=== PATIENT | female | born 1980 | race American Indian/Alaskan Native ===

== ENCOUNTER 2021-07-02 12:10 | Emergency (ER) | payer OTHER, MEDICAID, SELFPAY ==
[2021-07-02] VITALS (8 sets, daily range): BP systolic 105–135; BP diastolic 66–83; PULSE 82–92; RESP 16; TEMP 36.4; O2SAT 96–98; BMI 32.3
--- NOTE | 2021-07-02 12:55 | ED_ITS ---
HPI - Eye Problem <Gorge Peters PA-C - Last Filed: 07/02/21 13:51> General Chief complaint: Eye Problems Stated complaint: LEFT EYE IRRITATED AND PRESSURE BEHIND IT Time Seen by Provider: 07/02/21 12:24 History of Present Illness HPI Narrative: 41-year-old female with past medical history fibromyalgia, asthma presents to the ED with 3 days of left-sided eye pain, blurriness. Patient states that 3 days ago, she noticed upon awakening, redness in her left eye, p ain that feels like pressure in the same eye. Patient also endorses some left- sided ear pain. Patient denies having recent URI symptoms. Patient denies fever, chills, headaches, nausea, vomiting, abdominal pain, shortness of breath, chest pain, lightheadedness, dizziness, syncope. Patient denies a history of glaucoma or other eye problems. Patient is not a contact lens user. Patient uses glasses for reading. Related Data Previous Rx's Medication Instructions Recorded albuterol sulfate 90 mcg/actuation 0.09 mg IH Q4HP PRN #1 inh 01/06/17 aerosol inhaler (Proventil HFA) beclomethasone dipropionate 80 0 INH BID #3 inh 01/06/17 mcg/actuation aerosol inhaler (Qvar) fluticasone propionate 50 1 spray INTRANASAL QDAY #1 bot 01/06/17 mcg/actuation nasal spray,suspension (Flonase Allergy Relief) sumatriptan succinate 100 mg 100 mg PO PRN PRN #9 tab 05/06/17 tablet (Imitrex) fluoxetine 20 mg capsule 0 PO QDAY #60 cap 05/29/17 Allergies Allergy/AdvReac Type Severity Reaction Status Date / Time No Known Allergies Allergy Uncoded 12/17/17 12:59 Review of Systems <Gorge Peters PA-C - Last Filed: 07/02/21 13:51> Constitutional Constitutional: Denies chills, Denies fatigue, Denies fever(s), Denies frequent falls, Denies lethargy and Denies weakness Eyes Eyes: Reports blurry vision, Denies change in vision, Denies eye discharge, Denies irritation and Denies loss of vision Comments: Blurry vision in left eye, left eye pain ENT Ears, Nose, Mouth, and Throat: Denies change in voice, Denies dizziness, Denies neck pain, Denies sore throat and Denies throat swelling Comments: Left ear pain Cardiovascular Cardiovascular: Denies chest pain, Denies irregular heart rhythm, Denies lightheadedness, Denies palpitations, Denies dyspnea, Denies dyspnea on exertion and Denies orthopnea Respiratory Respiratory: Denies cough, Denies dyspnea, Denies dyspnea on exertion and Denies wheezing Gastrointestinal Gastrointestinal: Denies abdominal pain, Denies change in bowel habits, Denies diarrhea, Denies nausea and Denies vomiting Musculoskeletal Musculoskeletal: Denies neck pain and Denies numbness Integumentary/Breasts Skin/Breast: Denies pruritus, Denies erythema, Denies rash and Denies wounds Neurologic Neurologic: Denies behavioral changes, Denies confusion, Denies dizziness, Denies frequent falls, Denies loss of vision, Denies numbness and Denies weakness Psychiatric Psychiatric: Denies anxiety, Denies behavioral changes, Denies confusion, Denies depression, Denies homicidal ideation and Denies suicidal ideation Endocrine Endocrine: Denies fatigue, Denies flushing and Denies palpitations Hematologic/Lymphatic Hematologic/Lymphatic: Denies easy bruising Allergic/Immunologic Allergic/Immunologic: Denies urticaria, Denies throat swelling and Denies wheezing Patient History <Gorge Peters PA-C - Last Filed: 07/02/21 13:51> Surgical History History of third molar tooth extraction History of tonsillectomy Family History Father Age: 68 High cholesterol Grandfather Heart disease Hypertension High cholesterol Grandmother Hypertension Grandfather Cancer Grandmother Stroke Substance Use Type: marijuana Exam <Gorge Peters PA-C - Last Filed: 07/02/21 13:51> Initial Vital Signs Initial Vital Signs: Vital Signs Temperature 97.6 F 07/02/21 12:16 Pulse Rate 88 07/02/21 12:16 Respiratory Rate 16 07/02/21 12:16 Blood Pressure 135/83 07/02/21 12:16 Pulse Oximetry 97 07/02/21 12:16 Const General: cooperative HENMT Head: normocephalic and atraumatic Ears: external ears normal and other (Mild erythema of left tympanum, no bulging, no discharge) Nose: external nose normal and No nasal discharge Face and sinus: sinuses nontender, face symmetric, no sinus tenderness and No dry mucous membranes Mouth: oral mucosae normal and moist mucous membranes Teeth and gingiva: dentition normal Throat: tonsils normal and uvula midline Eyes Eyelids: eyelids normal Pupils: PERRL EOM: EOM intact bilaterally Other: Perrla, EOM intact bilaterally. Left conjunctival injection. Left eye appears swollen. Eyelids normal without erythema, swelling, discharge. Snellen vision is 20/20 in both eyes, 20/25 in the left eye, 20/20 in the right eye. No sinus tenderness to palpation Neck Neck: normal visual inspection, trachea midline, No lymphadenopathy, No midline deformity and No JVD Lymphatic: No lymphedema Chest Chest: normal inspection of the chest Resp Effort & Inspection: normal respiratory effort, able to speak in complete sentences, no respiratory distress and no use of accessory muscles Auscultation: clear to auscultation bilaterally, no rales, no rhonchi and no wheezes Cardio Rate: regular rate Rhythm: regular rhythm Heart Sounds: no click, no gallops, no murmurs and no rubs Pulses: normal peripheral pulses GI Inspection: non-distended Palpation: soft, no hepatosplenomegaly, No guarding, No pulsatile mass and No tender Auscultation: normal bowel sounds Back/Spine/Pelvis Back: No CVA tenderness Cervical Spine: cervical ROM normal and No pain with cervical ROM Thoracic/Lumbar Spine: thoracic and lumbar spine normal to inspection Skin General: no rashes or lesions noted, No jaundice and No petechiae Neuro General: patient alert, patient oriented x3, gait normal and no focal motor deficits Speech: speech normal Extrem General: full ROM, no clubbing, cyanosis or edema, no pedal edema and no calf tenderness Psych Appearance: well kempt Mental Status: mental status grossly normal Attitude: cooperative Thought Content: normal and suicidality Judgment: judgment good <Jason Naik DO - Last Filed: 07/09/21 07:23> Initial Vital Signs Initial Vital Signs: Vital Signs Temperature 97.6 F 07/02/21 12:16 Pulse Rate 88 07/02/21 12:16 Respiratory Rate 16 07/02/21 12:16 Blood Pressure 135/83 07/02/21 12:16 Pulse Oximetry 97 07/02/21 12:16 Course <Gorge Peters PA-C - Last Filed: 07/02/21 13:51> Course Course Narrative: Elevated IOP bilaterally. OS 30 mm Hg, OD 24 mm Hg. Patient has 3 signs (elevated IOP, conjunctival injection, corneal epithelial edema) 2 symptoms (ocular pain, blurry vision) glaucoma. Corneal abrasions visualized on fluorescein exam. Consulted Ophthalmology, Dr. Santosh Lantigua, who will see patient in his office today. Per Dr. Lantigua, he did not recommend any medications for the patient while in the ED. discussed with patient the seriuosness if the condition, patient verbalized understanding, will go to Dr. Lantigua' is office [place]. Orders Ordered: Discontinued Medications Fluorescein Sodium (Fluorescein 1 Mg Strip) 1 mg EYE-LEFT NOW ONE Stop: 07/02/21 13:01 Last Admin: 07/02/21 13:11 Dose: 1 mg Documented by: NICOLA Tetracaine HCl (Tetracaine 0.5% Ophth Drops 4 Ml) 2 drops EYE-BOTH INTRA-OP ONE Stop: 07/02/21 12:55 Last Admin: 07/02/21 13:11 Dose: 2 drops Documented by: NICOLA Vital Signs Vital signs: Vital Signs - 8 hr 07/02/21 12:16 07/02/21 12:21 07/02/21 12:22 Temperature 97.6 F Pulse Rate 88 88 Respiratory Rate 16 Blood Pressure 135/83 135/83 Pulse Oximetry 97 97 <Jason Naik DO - Last Filed: 07/09/21 07:23> Orders Ordered: Discontinued Medications Fluorescein Sodium (Fluorescein 1 Mg Strip) 1 mg EYE-LEFT NOW ONE Stop: 07/02/21 13:01 Last Admin: 07/02/21 13:11 Dose: 1 mg Documented by: NICOLA Tetracaine HCl (Tetracaine 0.5% Ophth Drops 4 Ml) 2 drops EYE-BOTH INTRA-OP ONE Stop: 07/02/21 12:55 Last Admin: 07/02/21 13:11 Dose: 2 drops Documented by: NICOLA Vital Signs Vital signs: Vital Signs - 8 hr 07/02/21 12:16 07/02/21 12:21 07/02/21 12:22 Temperature 97.6 F Pulse Rate 88 88 Respiratory Rate 16 Blood Pressure 135/83 135/83 Pulse Oximetry 97 97 [facility] - Eye Problem <Gorge Peters PA-C - Last Filed: 07/02/21 13:51> [facility] Narrative Medical decision making narrative: 41-year-old female with past medical history fibromyalgia, asthma presents to the ED with 3 days of left-sided eye pain, blurriness. Given conjunctival injection, swollen appearance of the eye, eye pain, concern for angle closure glaucoma. Left tympanum mildly erythematous, not bulging, not concerning for otitis media. Apply tetracaine drops to the eyes, check IOP. Will also check for corneal abrasions. Will reassess. Discharge Plan Departure Patient Disposition: Home Clinical Impression: Glaucoma Qualifiers: Glaucoma type: unspecified Laterality: bilateral Qualified Code(s): H40.9 - Unspecified glaucoma Instructions: Open-angle Glaucoma Activity Restrictions/Additional Instructions: You were seen in the ED today for left-sided eye pain, blurry vision. Your examination showed elevated intra-ocular pressures in both your eyes, which could likely be due to glaucoma. Immunohematologist Dr. Santosh Lantigua was consulted, he would like to see you in the office today. The clinic is [facility] located at [address] [place] [address]. Their phone number is [phone]. Glaucoma is a serious condition of PI, it is important for you to see Dr. Lantigua today. Prescriptions: No Action beclomethasone dipropionate [Qvar] 80 MCG/PUFF aerosol 0 INH BID Qty: 3 RF: 3 albuterol sulfate [Proventil HFA] 90 MCG/PUFF HFA aerosol inhaler 0.09 mg IH Q4HP PRNQty: 1 RF: 1 fluticasone propionate [Flonase Allergy Relief] 9.9 ML spray,suspension 1 spray Intranasal QDAY Qty: 1 RF: 1 sumatriptan succinate [Imitrex] 100 MG tablet 100 mg PO PRN PRNQty: 9 RF: 0 fluoxetine 20 MG capsule 0 PO QDAY Qty: 60 RF: 2 Referrals: Homero Treadwell MD [Primary Care Provider] - <Jason Naik DO - Last Filed: 07/09/21 07:23> Cosign ED Attending Cosignature Attestation: I was immediately available in the department for consultation. This documentation has been reviewed and I agree with assessment and plan. Supervised by Jason Naik, DO
[2021-07-02] MEDS: TETRACAINE 0.5% OPHTH DROPS 4 ML 2 DROPS EYE-BOTH (13:11)
[2021-07-02] MEDS: FLUORESCEIN 1 MG STRIP EYE-LEFT (13:11)
== END 2021-07-02 13:47 | disposition home or self-care (01) ==
PROVIDERS: Emergency Provider Student in an Organized Health Care Education/Training Program; PCP Family Medicine
DX: H40.9 Unspecified glaucoma (principal)
CPT/HCPCS: 99282

== ENCOUNTER → 2023-11-13 12:40 | Day surgery (SDC) | payer OTHER, MEDICAID, SELFPAY ==
[2023-11-11 14:57] VITALS: BMI 35.2
[2023-11-13 14:03] VITALS: BP 118/71; PULSE 83; RESP 16; TEMP 36.2; O2SAT 98; BMI 35.2
--- NOTE | 2023-11-13 14:36 | P.HPOB_ITS ---
History of Present Illness History of Present Illness Reason for admission: vaginal bleeding and pelvic pain Narrative: Mildred Tripathi is a 43 year old female 5 para 3 who presents for a D&C hysteroscopy with NovaSure endometrial ablation due to heavy and painful menstrual cycles. [facility] Medical History (Updated 11/11/23 @ 15:03 by Nory Lenz RN) Pancreatitis (2021) IBS (irritable bowel syndrome) (2022) Eczema (~1995) Alopecia (~2002) Acne (~1991) Asthma (~1989) Depression (~1997) Restless leg syndrome (~1999) Migraines (~2009) ADHD Hypermobility syndrome (~1979) Shoulder pain (~2002) Scoliosis (~1992) Fibromyalgia (~2021) Chronic back pain (~1999) Painful menstrual periods (~2021) Surgical History (Updated 08/27/23 @ 17:45 by Brielle Castañeda MD) H/O dilation and curettage Status post wisdom tooth extraction Anesthesia Status post breast reduction (~2008) History of shoulder surgery (~1997) History of tonsillectomy (~2001) History of third molar tooth extraction Family History (Updated 08/26/23 @ 13:26 by Neelam Edmondson) Father Age: 70 High cholesterol Grandfather Heart disease Hypertension High cholesterol Grandmother Hypertension Grandfather Cancer Heart disease Hypertension Hyperlipidemia Grandmother Stroke Diabetes mellitus Hypertension Social History household members: children Smoking Status: Former smoker alcohol intake: former Meds Home Medications and Allergies Home Medications Medication Instructions Recorded Confirmed Type oxycodone 5 mg tablet 5 mg PO Q4H PRN pain #10 tabs 11/13/23 Rx Allergies Allergy/AdvReac Type Severity Reaction Status Date / Time No Known Allergies Allergy Uncoded 11/13/23 13:54 Exam Vital Signs (past 8 hours): - 11/13/23 14:03 Temperature 97.2 F L Pulse Rate 83 Respiratory Rate 16 Blood Pressure 118/71 Pulse Oximetry 98 Oxygen Delivery Method Room Air Oxygen Delivery Method Room Air Narrative Exam Narrative: HEENT: No thyromegaly, no anterior cervical or supraclavicular lymphadenopathy. Lungs:Clear to auscultation bilaterally, no wheezes. Cardiovascular: Regular rate and rhythm, no murmurs, rubs, or gallops. Abdomen: No scars. No hepatosplenomegaly. No masses palpable. External genitalia: Normal Vagina: Normal Cervix: Normal Bimanual exam: 8 Week size anteverted uterus. Mobile. Extremities: No edema Assessment & Plan Assessment & Plan narrative: Assessment: 43-year-old 5 para 3 with heavy and painful menstrual cycles Plan: D&C hysteroscopy with NovaSure endometrial ablation The risks, benefits, and alternatives to the procedure were explained to the patient. The risks including bleeding, infection, and uterine perforation. She understands these risks and agrees to proceed. A full par Q was held and consent form was signed. Time Spent With Patient Time with patient: less than 30 minutes
[2023-11-13] MEDS: LACTATED RINGERS 1,000 ML 21 ML IV (14:38)
--- NOTE | 2023-11-13 14:38 | PM.PREOP ---
Pre-operative Note Interval Note History & Physical reviewed/Exam performed by Physician: Yes Changes to H&P: No H&P completed within 30 days and has changed as indicated here:: 11/13/23
--- NOTE | 2023-11-13 16:07 | SUR.PREOP ---
Notified patient that due to a complication with a previous surgery, patient could either wait for additional hours to have surgery or reschedule. Patient choosing to reschedule and very understanding. Home with family in stable condition. IV removed with catheter intact. Apologized for the inconvenience.
== END ==
PROVIDERS: Referring Provider Obstetrics & Gynecology; Visit Provider Obstetrics & Gynecology
DX: Z53.09 Procedure and treatment not carried out because of other contraindication (principal)

== ENCOUNTER 2024-01-15 11:18 | Day surgery (SDC) | payer OTHER, MEDICAID, SELFPAY ==
[2023-11-18 10:48] VITALS: BMI 35.2
--- NOTE | 2024-01-15 | PATH_ITS ---
[facility] Accession Number: [id number] No. of containers..01 Tissue . 01 Material submitted: . endometrium - ENDOMETRIAL CURETTINGS . 01 Diagnosis: ENDOMETRIUM, CURETTAGE: Polypoid fragments of late secretory phase benign endometrium with evidence of shedding/breakdown. MRV 01/21/2024 1437 Local . 01 Electronically signed: . Padmini Angelo MD, Pathologist NPI- [id number] . 01 Gross description: . Received in formalin with two patient identifiers and endometrial curettings, specimen consists of a 2.5 x 1.5 x 0.6 cm aggregate of clotted blood and mucus, which is filtered and entirely submitted in cassette A1. ([id number]) /MRV 01/16/2024 1736 Local . 01 Pathologist provided ICD-10: N93.9 . 01 CPT . 190928 Specimen Comment: A courtesy copy of this report has been sent to [phone] Performed at: 01 [facility] [address] [place] [address], [place], [place] [id number] MD Alan Rock MD Phone: [phone]
[2024-01-15] MEDS: SCOPOLAMINE 1 PATCH TOP (11:43)
[2024-01-15] MEDS: LACTATED RINGERS 1,000 ML 21 ML IV (11:43)
[2024-01-15 11:59] VITALS: BP 123/82; PULSE 84; RESP 18; TEMP 37.2; O2SAT 99; BMI 35.2
--- NOTE | 2024-01-15 12:59 | PM.GYNHP.1 ---
History of Present Illness History of Present Illness Reason for admission: vaginal bleeding and pelvic pain Narrative: Mildred Tripathi is a 43 year old female 5 para 3 who presents for a diagnostic laparoscopy, D&C hysteroscopy with NovaSure endometrial ablation. These procedures are being done due to menorrhagia and pelvic pain, unable to see the left ovary on ultrasound [facility] Medical History (Updated 11/11/23 @ 15:03 by Nory Lenz RN) Pancreatitis (2021) IBS (irritable bowel syndrome) (2022) Eczema (~1995) Alopecia (~2002) Acne (~1991) Asthma (~1989) Depression (~1997) Restless leg syndrome (~1999) Migraines (~2009) ADHD Hypermobility syndrome (~1979) Shoulder pain (~2002) Scoliosis (~1992) Fibromyalgia (~2021) Chronic back pain (~1999) Painful menstrual periods (~2021) Surgical History (Updated 08/27/23 @ 17:45 by Brielle Castañeda MD) H/O dilation and curettage Status post wisdom tooth extraction Anesthesia Status post breast reduction (~2008) History of shoulder surgery (~1997) History of tonsillectomy (~2001) History of third molar tooth extraction Family History (Updated 08/26/23 @ 13:26 by Neelam Edmondson) Father Age: 71 High cholesterol Grandfather Heart disease Hypertension High cholesterol Grandmother Hypertension Grandfather Cancer Heart disease Hypertension Hyperlipidemia Grandmother Stroke Diabetes mellitus Hypertension Social History household members: children Smoking Status: Former smoker alcohol intake: former Meds Home Medications and Allergies Home Medications Medication Instructions Recorded Confirmed Type alprazolam 0.25 mg tablet 0.25 mg PO DAILY PRN anxiety 01/15/24 01/15/24 History topiramate 50 mg tablet 50 mg PO BID 01/15/24 01/15/24 History Allergies Allergy/AdvReac Type Severity Reaction Status Date / Time No Known Drug Allergies Allergy Verified 01/15/24 11:55 Exam Vital Signs (past 8 hours): - 01/15/24 11:59 Temperature 99 F Pulse Rate 84 Respiratory Rate 18 Blood Pressure 123/82 Pulse Oximetry 99 Oxygen Delivery Method Room Air Oxygen Delivery Method Room Air Narrative Exam Narrative: HEENT: No thyromegaly, no anterior cervical or supraclavicular lymphadenopathy. Lungs:Clear to auscultation bilaterally, no wheezes. Cardiovascular: Regular rate and rhythm, no murmurs, rubs, or gallops. Abdomen: No scars. No hepatosplenomegaly. No masses palpable. External genitalia: Normal Vagina: Normal Cervix: Normal Bimanual exam: 8 Week size uterus. Mobile. Extremities: No edema Assessment & Plan Assessment & Plan narrative: Assessment: 43-year-old 5 para 3 left lower quadrant pain, unable to see the left ovary on ultrasound, and menorrhagia Plan: Diagnostic laparoscopy, D and C hysteroscopy and NovaSure endometrial ablation The risks, benefits, and alternatives to the procedure were explained to the patient. The risks including bleeding, infection, injury to the bowel, bladder, ureters, or uterine perforation. She understands these risks and agrees to proceed. A full par Q was held and consent form was signed. Time Spent With Patient Time with patient: less than 30 minutes
[2024-01-15] MEDS: ACETAMINOPHEN IV 1,000 MG/100 ML VIAL 400 MG IV (13:35)
[2024-01-15 14:18] VITALS: BP 125/82; PULSE 80; RESP 16; TEMP 37.1; O2SAT 97
[2024-01-15 14:23] VITALS: BP 125/85; PULSE 99; RESP 16; O2SAT 100
--- NOTE | 2024-01-15 14:23 | P.OP_ITS ---
Operative Date/Time/Diagnoses Date of procedure: 01/15/24 Time of procedure: 14:23 Pre-op diagnosis: Left lower quadrant pain Left ovary not seen on ultrasound Menorrhagia Post-op diagnosis: same Procedure & Clinicians Procedure: Procedures Operation Date: 01/15/24 12:45 Actual Procedure Side Surgeon micheline JOSÉ LAPAROSCOPY, D&C Hysteroscopy w/ Novasure Ablation, ENDOMETRIAL CURRETTINGS Brielle Castañeda MD Indications: 43-year-old with left lower quadrant pain and menorrhagia. Left ovary not visu alized on ultrasound. Surgeon: Brielle Castañeda Anesthesia Type: General and Local Operative Notes Findings: 7 week size uterus Normal tubes and ovaries Normal liver and gallbladder Normal appendix There was a small polyp near the left fallopian tube ostia Specimen(s): endometrial curettings Estimated blood loss (mL): 5 Blood products transfused: none Procedure in detail: After informed consent was obtained, the patient was taken to the operating room where she was placed in the dorsal supine position. After adequate general endotracheal anesthesia was achieved, she was placed in the dorsal lithotomy position, and prepped and draped in the usual sterile fashion. A time-out was performed. A bivalve speculum was placed into the vagina and the anterior lip of the cervix was grasped with a single-tooth tenaculum. The cervical os was sequentially dilated until the Zumi uterine manipulator could pass easily into the endometrial cavity. The single-tooth tenaculum was removed from the anterior lip of the cervix. The bivalve speculum was removed from the vagina. Attention was then turned to the abdomen where 6 cc of 0.5% Marcaine with epine phrine were injected in the umbilical fold. A 5 mm incision was made. The Veress needle was placed into the peritoneal cavity, and its placement confirmed by aspiration and drop test. The abdominal cavity was insufflated with 3.5 L of CO2. The Veress needle was removed, and a 5 mm trocar was placed without difficulty. Inspection of the pelvis and abdomen revealed the findings noted above. The instruments were removed from the uterus. The CO2 was allowed to escape. The incision was closed with 4-0 Monocryl in a subcuticular fashion. Steri-Strips and Allevyn dressings were placed. Attention was then turned to the vagina where the Zumi uterine manipulator was removed from the uterus. A bivalve speculum was placed into the vagina and the anterior lip of the cervix was grasped with a single-tooth tenaculum. The cervical os was dilated to the #8 Hegar dilator. The hysteroscope pass easily into the endometrial cavity. Both fallopian tube ostia were observed. Using the MyoSure Lite, a small polyp was resected near the left fallopian tube ostia. The hysteroscope was removed. Sharp curettage was performed yielding a large amount of endometrial curettings. The uterus was measured from the internal os to the fundus of the uterus and was 4.5 cm. This was set on the NovaSure catheter and the generator. The NovaSure catheter passed easily into the endometrial cavity and was opened. The width of the uterus was 3.6 cm. This was set on the generator. The cervix was capped, the cavity assessment was performed and passed. The cycle was initiated and lasted 1 minute and 29 seconds. The power was 89 w. Deficit of fluid 170 cc. Fluid volume 416 cc. Max pressure 80 mmHg. The NovaSure catheter was closed, the cervix was uncapped, and the catheter was removed from the uterus. The single-tooth tenaculum was removed from the anterior lip of the cervix. The bivalve speculum was removed from the vagina. Sponge, lap, and instrument counts were correct x2. The patient tolerated the procedure well, and was taken to PACU in stable condition. Complications: none Post-operative Condition: stable Disposition: PACU Plan for aftercare: Home after recovery
[2024-01-15 14:25] VITALS: BP 122/54; PULSE 89; RESP 14; O2SAT 93
[2024-01-15] MEDS: ALBUTEROL 2.5 MG/3 ML NEB (ADULT) INH (14:30)
[2024-01-15 14:32] VITALS: BP 123/82; PULSE 89; RESP 18; TEMP 36.4; O2SAT 100
[2024-01-15 14:46] VITALS: BP 125/86; PULSE 95; RESP 18; O2SAT 99
== END 2024-01-15 15:37 | disposition home or self-care (01) ==
PROVIDERS: PCP Family Medicine; Referring Provider Obstetrics & Gynecology; Visit Provider Obstetrics & Gynecology
PROC: 0U5B8ZZ Destruction of Endometrium, Via Natural or Artificial Opening Endoscopic (ICD-10-PCS; CPT 58563; principal; 2024-01-15 12:45)
DX: N94.6 Dysmenorrhea, unspecified (principal); N92.0 Excessive and frequent menstruation with regular cycle; N84.0 Polyp of corpus uteri
CPT/HCPCS: 49320; 58563; 81025; J0136; J1100; J1885; J2405; J2704; J3010; J3490; J7613